=== PATIENT | female | born 1955 | race African-American/Black ===

== ENCOUNTER 2018-10-27 11:27 | Emergency (ER) | payer SELFPAY ==
[~2018-10-27] VITALS: Ht 167.6 cm; Wt 77.1 kg
--- NOTE | 2018-10-27 11:37 | NUR ---
ED Nurse Note: Pt came into the ER w/ complaints of bodyaches x 1 hour. Pt states she was just at home and she started to hurt. Rating the bodyache a 10/10. Pt is A + O x4. Ambulatory. Hx of schizophrenia, depression, hypothyroidism.
[2018-10-27 11:40] VITALS: BP 123/64
[2018-10-27] MEDS ORDERED: UNOBMED (11:40)
--- NOTE | 2018-10-27 12:04 | NUR ---
Note moriah in EDM - 10/27/18 at 1212 by SHAR ED Nurse Note: While being seen by ERMD, pt refused to answer questions to further help pt. Pt decided to elope. Left ER w/ all belongings and with no acute distress noted.
[2018-10-27] MEDS ORDERED: LIDODERM700 M1 TOPIC (12:11)
[2018-10-27] MEDS ORDERED: TYLENOL EXTRA500 MG ORAL (12:11)
--- NOTE | 2018-10-27 12:12 | NUR ---
ED Nurse Note: While being seen by ERMD, pt refused to answer questions to further help pt. Discharge instructions given to pt. Answered all questions. Verbalized undertstanding. No acute distress noted. ID band removed. Left ER w/ steady gait and all belongings.
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
== END 2018-10-27 12:30 | disposition home or self-care (01) ==
LOC: EMR 12:09
DX: G89.29 Other chronic pain (principal); Z76.5 Malingerer [conscious simulation]; F31.9 Bipolar disorder, unspecified; F20.9 Schizophrenia, unspecified
CPT/HCPCS: 99283